=== PATIENT | male | born 1930 | race Caucasian/White ===

== ENCOUNTER 2018-10-11 07:22 | Inpatient (IN) ==
[2018-10-11] MEDS ORDERED: Sod Chloride 0.9% Inj 1,000 ML IV.CONT SCH (08:00)
[2018-10-11] MEDS ORDERED: Chlorhexidine Gluconate 2% 1 Pack (2 Cloths) TOPICAL SCH ×2 (08:00→08:14)
[2018-10-11] MEDS ORDERED: Aspirin 325 MG Tablet PO SCH (08:00)
[2018-10-11] MEDS ORDERED: Mupirocin 2% Nasal Oint Topical Syringe EACH NARE SCH (08:00)
[2018-10-11] MEDS ORDERED: Metoprolol Tartrate 25 MG Tablet PO SCH (08:14)
[2018-10-11] MEDS ORDERED: Sodium Chlor 0.9% Inj 500 ML IV.SIG SCH (09:00)
[2018-10-11 09:28] LABS: INR 1.3 Ratio; Prothrombin Time 12.7 sec (9.8-11.6)
--- NOTE | 2018-10-11 09:44 | P.HPCA ---
History of Present Illness Service: Cardiology Primary Care Physician: Yvette Craft Chief Complaint: Severe aortic valve stenosis History of Present Illness: This is an 86-year-old male with history of atrial fibrillation, coronary disease, known carotid arterial occlusion, chronic renal insufficiency, hyperlipidemia, hypertension, myeloproliferative disease, peripheral vascular disease who presented to the outpatient setting with progressive shortness of breath. Transthoracic echocardiogram revealed moderate to severely reduced left ventricular systolic function with an ejection fraction of 35% and severe aortic valve stenosis. Patient was then referred for consideration of aortic valve replacement. Patient was evaluated by 2 cardiovascular surgeons and felt to be intermediate to high surgical risk for aortic valve replacement and was referred for consideration of transcatheter aortic valve replacement. Patient is now scheduled here electively for his procedure. - Diagnosis (1) Severe aortic valve stenosis (2) Chronic combined systolic and diastolic congestive heart failure Inpatient Certification: I certify that the inpatient services were ordered in accordance with Medicare regulations governing the order. This includes certification that hospital inpatient services are reasonable and necessary and in the case of services not specified as inpatient-only under 42 CFR 419.22(n), that they are appropriately provided as inpatient services in accordance to with the 2-midnight benchmark under 43 CFR 412.3(e) Estimated Total Length of Stay (Days): 3 Plans for Post Hospital Care: Home Review of Systems All other systems reviewed negative except as stated in HPI [facility] - History History Provided By: Patient - Medical History Medical History: Medical History (Last Updated 08/24/18 @ 11:45 by Ana Quintanilla) Afib Anemia Aortic stenosis CAD (coronary artery disease) CHF (congestive heart failure) CKD (chronic kidney disease), stage III Dyspnea Glaucoma Hypothyroidism Left bundle branch block PAD (peripheral artery disease) PVD (peripheral vascular disease) Pacemaker Second degree AV block Skin cancer Ventricular tachycardia Vocal cord cancer - Tobacco History Smoking Status: Former smoker - Alcohol History How Often Do You Have a Drink Containing Alcohol: Never Medications and Allergies Active Medications: Active Medications Aspirin (Aspirin) 325 mg PO PLASTIC EYE TECHNICIAN [facility] Stop: 10/14/18 07:47 Last Admin: 10/11/18 08:09 Dose: 325 mg Chlorhexidine Gluconate (Chlorhexidine 2% Cloth) 3 pack TOPICAL PLASTIC EYE TECHNICIAN [facility] Stop: 10/14/18 07:47 Last Admin: 10/11/18 08:10 Dose: 3 pack Chlorhexidine Gluconate (Chlorhexidine 2% Cloth) 3 pack TOPICAL PLASTIC EYE TECHNICIAN [facility] Stop: 10/11/18 23:59 Sodium Chloride (Ns Inj) 1,000 mls @ 125 mls/hr IV.CONT .Q8H [facility] Cefazolin Sodium/Dextrose (Ancef 2 Gm Premix Inj) 2 gm in 50 mls @ 100 mls/hr IV.SIG PLASTIC EYE TECHNICIAN [facility] Stop: 10/14/18 07:59 Lactated Ringer's (Lr 1000 Ml Inj) 1,000 mls @ 30 mls/hr IV.SIG .Q24H [facility] Stop: 10/12/18 08:14 Sodium Chloride (Ns Inj) 500 mls @ 30 mls/hr IV.SIG .[id number] [facility] Stop: 10/12/18 01:39 Metoprolol Tartrate (Lopressor) 25 mg PO PLASTIC EYE TECHNICIAN [facility] Stop: 10/11/18 23:59 Mupirocin (Bactroban 2% Nasal Oint) 1 applicatio EACH NARE PLASTIC EYE TECHNICIAN [facility] Stop: 10/14/18 07:47 Povidone Iodine (Betadine 5% Antisepsis Kit) 1 applicatio TOPICAL PLASTIC EYE TECHNICIAN [facility] Stop: 10/14/18 07:47 Last Admin: 10/11/18 08:09 Dose: 1 applicatio Povidone Iodine (Betadine 5% Antisepsis Kit) 1 applicatio EACH NARE PLASTIC EYE TECHNICIAN [facility] Stop: 10/11/18 23:59 Allergies Allergy/AdvReac Type Severity Reaction Status Date / Time No Known Allergies Allergy Verified 10/11/18 08:16 Home Medications Medication Instructions Recorded Confirmed Type carvedilol 3.125 mg PO BID 08/24/18 10/11/18 History ferrous sulfate [iron] 325 mg PO DAILY 08/24/18 10/11/18 History furosemide 20 mg PO DAILY 08/24/18 10/11/18 History hydroxyurea 500 mg PO DAILY 08/24/18 10/11/18 History levothyroxine 75 mcg PO DAILY 08/24/18 10/11/18 History simvastatin 40 mg PO QPM 08/24/18 10/11/18 History warfarin See Label Instructions .ROUTE 08/24/18 10/11/18 History .COMPLEX warfarin See Label Instructions .ROUTE 08/24/18 10/11/18 History .COMPLEX Exam Vital signs: Vital Signs 10/11/18 08:13 Temperature 97.4 F L Pulse Rate 56 L Respiratory Rate 16 Blood Pressure 109/70 Pulse Oximetry 100 Intake & Output 10/10/18 10/11/18 10/11/18 18:59 06:59 18:59 Weight 84.4 kg Other: Weight On Admission 84.4 kg - Constitutional no acute distress - Routine HEENT Exam Eye: Present: EOMI, PERRL ENT: Present: mucous membranes moist - Routine Neck Exam Absent: JVD - Routine Respiratory Exam Present: CTA bilaterally - Routine Cardiovascular Exam Present: RRR, murmur - Routine Abdominal Exam Present: soft, normoactive bowel sounds - Routine Extremities Exam Present: pulses intact. Absent: edema - Routine Skin Exam Absent: erythema - Routine Neurological Exam Present: alert, oriented X3, CN II-XII intact. Absent: sensory deficit, motor deficit Results Coagulation 10/11/18 Range/Units 08:31 PT 12.7 H (9.8-11.6) sec Intake and Output 10/10/18 10/11/18 10/11/18 22:59 06:59 14:59 Other: Weight 84.4 kg Weight On Admission 84.4 kg Patient Weight 10/12/18 06:59 Weight 84.4 kg EKG interpretations - Dysrhythmias Supraventricular dysrhythmia: atrial fibrillation - SD, pacemaker, normal Pacemaker: ventricular pacing w/capture (except when refractory) Caprini VTE Risk Assessment Caprini VTE Risk Assessment: Moderate/High Risk (score >= 2) Caprini Risk Assessment Model: Point Value = 1 Point Value = 2 Point Value = 3 Point Value = 5 Age 41-60 Minor surgery BMI > 25 kg/m2 Swollen legs Varicose veins or History of unexplained or recurrent spontaneous Oral contraceptives or hormone replacement Sepsis (< 1 month) Serious lung disease, including pneumonia (< 1 month) Abnormal pulmonary function Acute myocardial infarction Congestive heart failure (< 1 month) History of inflammatory bowel disease Medical patient at bed rest Age 61-74 Arthroscopic surgery Major open surgery (> 45 min) Laparoscopic surgery (> 45 min) Malignancy Confined to bed (> 72 hours) Immobilizing plaster cast Central venous access Age >= 75 History of VTE Family history of VTE Factor V Leiden Prothrombin [id number] Lupus anticoagulant Anticardiolipin antibodies Elevated serum homocysteine Heparin-induced thrombocytopenia Other congenital or acquired thrombophilia Stroke (< 1 month) Elective arthroplasty Hip, pelvis, or leg fracture Acute spinal cord injury (< 1 month) Prophylaxis Regimen: Total Risk Factor Score Risk Level Prophylaxis Regimen 0-1 Low Early ambulation 2 Moderate Order ONE of the following: *Sequential Compression Device (SCD) *Heparin 5000 units SQ BID 3-4 Higher Order ONE of the following medications: *Heparin 5000 units SQ TID *Enoxaparin/Lovenox 40 mg SQ daily (WT < 150 kg, CrCl > 30 mL/min) *Enoxaparin/Lovenox 30 mg SQ daily (WT < 150 kg, CrCl > 10-29 mL/min) *Enoxaparin/Lovenox 30 mg SQ BID (WT < 150 kg, CrCl > 30 mL/min) AND/OR *Sequential Compression Device (SCD) 5 or more Highest Order ONE of the following medications: *Heparin 5000 units SQ TID (Preferred with Epidurals) *Enoxaparin/Lovenox 40 mg SQ daily (WT < 150 kg, CrCl > 30 mL/min) *Enoxaparin/Lovenox 30 mg SQ daily (WT < 150 kg, CrCl > 10-29 mL/min) *Enoxaparin/Lovenox 30 mg SQ BID (WT < 150 kg, CrCl > 30 mL/min) AND *Sequential Compression Device (SCD) Assessment and Plan - Assessment (1) Severe aortic valve stenosis Code(s): I35.0 - Nonrheumatic aortic (valve) stenosis Status: Acute (2) Chronic combined systolic and diastolic congestive heart failure Code(s): I50.42 - Chronic combined systolic (congestive) and diastolic ( congestive) heart failure Status: Acute - Plan This is an 88-year-old male with multiple comorbidities which includes cardiomyopathy and severe aortic valve stenosis. Patient was evaluated by cardiothoracic surgery and felt to be intermediate to high risk for surgical aortic valve replacement and referred for consideration of a transcatheter aortic valve replacement approach. Preoperative evaluation: STS score 7.3% [place] [employer] functional class III symptoms Body mass index 26.1 2/4 frailty score Electrocardiogram from August 24, 2018 shows atrial fibrillation with intermittent premature ventricular complexes and ventricular paced beats Pulmonary function testing from August 24, 2018 shows an FEV1 of 1.62 which equals 56% consistent with mild restrictive lung disease Echocardiogram from August 24, 2018 shows a peak jet velocity of 2.83 m/s with a mean gradient of 16.7 mmHg and a calculated aortic valve area of 0.6 cm. Left ventricular ejection fraction calculated 32%, mild aortic insufficiency, mild to moderate mitral regurgitation, moderate tricuspid regurgitation, dimensionless index 0.18 consistent with severe aortic valve stenosis along with stroke volume index of 17. Cardiac catheterization August 24, 2018 shows branch vessel coronary artery disease involving the first diagonal and obtuse marginal branches both managed medically Computed tomographic analysis from September 11, 2018 shows a short annulus diameter 25.4 mm, long annulus diameter 30.5 mm, perimeter of 87.9 mm, sinus of Valsalva diameter 37.2 mm, sinotubular junction 30.5 mm, left coronary height 16.6 mm, right coronary height 16.6 mm, implant angle left anterior oblique 13 and cranial 18 degrees. Minimal luminal diameter in the right lower extremity 6.6 mm and in the left is less than 6 mm. There is heavy calcification in the common iliac artery on the right and subtotal occlusion in the left common iliac artery. Risks, benefits, and alternatives were discussed with the patient. Patient understood and consented to the procedure. We will plan for implantation of a 34 mm Medtronic evolute R bioprosthetic transcatheter aortic valve via a right common femoral approach. Alternate access will also be considered in the case of difficult transition to the iliac system. Case discussed in detail with surgical colleagues.
[2018-10-11] MEDS: ceFAZolin 2 GM Premix Inj 2 GM/50 ML PIGGYBACK IV.SIG SCH (11:00)
[2018-10-11] MEDS ORDERED: Iohexol Inj 350 MG/ML 100 ML Bottle (for RAD Diag) IVCONTRAST ONE (12:10)
[2018-10-11] MEDS ORDERED: Morphine Sulfate Inj 2 MG/ML Vial IV.PUSH PRN (12:24)
[2018-10-11] MEDS ORDERED: hydrALAZINE HCl Inj 20 MG/ML Vial IV.PUSH PRN (12:24)
--- NOTE | 2018-10-11 12:28 | P.OP ---
Date of procedure: 10/11/18 Anesthesia: GETA Surgeon: Melissa Milligan MD Operation and Findings: PREOPERATIVE DIAGNOSIS: 1. Severe Symptomatic Aortic stenosis. 2. CHF 3. Mild aortic Insufficiency 4. Severe Mitral Insufficiency 5. Atrial Fibrillation POSTOPERATIVE DIAGNOSIS: Same OPERATION PERFORMED: 1. Transcatheter Aortic Valve Replacement (TAVR) with a Medtronic 34 mm Evolut R Tissue Valve. 2. Aortogram. 3. Percutaneous left femoral Vein Access and Bilateral Common Femoral Artery Access 4. Perclose (x2) closure of right Common Femoral artery. 5. Vascade closure of left Common Femoral Artery and Vein. 6. Fluoroscopy SURGEON: Melissa Milligan MD CO-SURGEON: Marshall Polanco MD SOFTBALL PLAYER SURGEON: None CHEMICAL LAB SUPERVISOR: FLORIDALMA Cramer MD ANESTHESIA: GETA PROCEDURE: The risks, benefits, complications, treatment options, and expected outcomes were discussed with the patient. The possibilities of reaction to medication, pulmonary aspiration, perforation of viscus, bleeding, recurrent infection, the need for additional procedures, failure to diagnose a condition, and creating a complication requiring transfusion or operation were discussed with the patient. The patient concurred with the proposed plan, giving informed consent. The site of surgery properly noted/marked. The patient was taken to the hybrid operating room and the procedure verified as Transcatheter Aortic Valve Replacement. A Time Out was held and the above information confirmed. Standard monitoring lines and Villatoro catheter were placed. General anesthesia was induced. The patient was prepped and draped in a sterile fashion. Initially, the left femoral arterial and venous access was acquired using a Seldinger percutaneous technique. The details of this procedure were dictated under separate note by cardiology. Once a pigtail was positioned in the aortic annulus and a temporary transvenous pacemaker wire was placed in the right ventricular apex and tested, the right femoral artery was accessed using a needle followed by a guidewire under fluoroscopic guidance. The patient was heparinized and two Perclose devices deployed at a 45 degree angle for later closure. Serial dilators were used to dilate the right femoral artery to 16 [place] caliber. The Medtronic sheath was then inserted into the external iliac artery up to the distal abdominal aorta. Arch aortography was performed to define the implant view. A 34 mm Medtronic Evolut R transcatheter aortic valve was then positioned in the annulus and deployed with the patient being rapidly paced. Following deployment, the valve apparatus was withdrawn and arch aortography and CHANTELLE were performed to assess the valve. The valve had trace perivalvular leak. Gradients were then measured and the sheath was removed with securing the Perclose sutures for hemostasis. Protamine was administered. The left arterial and Venous access sites were closed using the Vascade device. Sterile dressings were placed. At the end of the operation, all sponge, instruments, and needle counts were correct. The patient was transferred to the CVICU in stable condition. Findings: Trace PVL Implants: 34 Evolut R Medtronic Valve Complications: None Disposition: CVICU in stable condition
[2018-10-11] MEDS ORDERED: fentaNYL Citrate Inj 100 MCG/2 ML Ampul ONE (12:52)
--- NOTE | 2018-10-11 12:56 | P.CONCC ---
History of Present Illness Service: Critical care medicine Consult date: 10/11/18 Requesting Physician: Marshall Polanco Reason for Consult: perioperative management of medical comorbidities Primary Care Provider: Yvette Craft Chief Complaint: Severe aortic valve stenosis History of Present Illness: This is an 88-year-old male with a history of severe aortic stenosis who presents for elective transcatheter aortic valve replacement. He underwent uncomplicated procedure under general anesthesia via groin access. He arrives to the CVICU in stable and exudative condition. Due to his arousal from anesthesia complete review of systems is unobtainable. Limited review of systems is negative for chest pain, sore throat, shortness of breath, headache, nausea, vomiting. Review of Systems unobtainable due to mental status (Limited by arousing from anesthesia) PMF - History History Provided By: Patient, Medical Record - Medical History Medical History: Medical History (Last Reviewed 10/11/18 @ 12:52 by Delroy Lennon MD) Afib Anemia Aortic stenosis CAD (coronary artery disease) CHF (congestive heart failure) CKD (chronic kidney disease), stage III Dyspnea Glaucoma Hypothyroidism Left bundle branch block PAD (peripheral artery disease) PVD (peripheral vascular disease) Pacemaker Second degree AV block Skin cancer Ventricular tachycardia Vocal cord cancer - Family History Family History: Family History (Last Updated 10/11/18 @ 12:52 by Delroy Lennon MD) Other Family history non-contributory - Social History I have reviewed the patient's Social History: Yes - Tobacco History Smoking Status: Former smoker - Alcohol History How Often Do You Have a Drink Containing Alcohol: Never Medications and Allergies Active Medications: Active Medications Aspirin (Aspirin) 325 mg PO VOICE INSTRUCTOR [facility] Stop: 10/14/18 07:47 Last Admin: 10/11/18 08:09 Dose: 325 mg Aspirin (Aspirin Chew) 81 mg PO DAILY [facility] Atorvastatin Calcium (Lipitor) 20 mg PO ONCE ONE Stop: 10/11/18 14:01 Carvedilol (Coreg) 3.125 mg PO BID [facility] Chlorhexidine Gluconate (Chlorhexidine 2% Cloth) 3 pack TOPICAL VOICE INSTRUCTOR [facility] Stop: 10/14/18 07:47 Last Admin: 10/11/18 08:10 Dose: 3 pack Chlorhexidine Gluconate (Chlorhexidine 2% Cloth) 3 pack TOPICAL VOICE INSTRUCTOR [facility] Stop: 10/11/18 23:59 Clonidine HCl (Catapres) 0.2 mg PO Q6H PRN PRN Reason: SBP > 160 mmHg Clopidogrel Bisulfate (Plavix) 75 mg PO DAILY [facility] Ferrous Sulfate (Ferosul) 325 mg PO DAILY [facility] Furosemide (Lasix Inj) 20 mg IV.PUSH ONCE ONE Stop: 10/11/18 14:01 Hydralazine HCl (Apresoline Inj) 10 mg IV.PUSH Q30M PRN PRN Reason: SBP > 160 mmHg Sodium Chloride (Ns Inj) 1,000 mls @ 125 mls/hr IV.CONT .Q8H [facility] Cefazolin Sodium/Dextrose (Ancef 2 Gm Premix Inj) 2 gm in 50 mls @ 100 mls/hr IV.SIG VOICE INSTRUCTOR [facility] Stop: 10/14/18 07:59 Last Infusion: 10/11/18 11:15 Dose: Infused Lactated Ringer's (Lr 1000 Ml Inj) 1,000 mls @ 30 mls/hr IV.SIG .Q24H [facility] Stop: 10/12/18 08:14 Sodium Chloride (Ns Inj) 500 mls @ 30 mls/hr IV.SIG .[id number] [facility] Stop: 10/12/18 01:39 Metoprolol Tartrate (Lopressor) 25 mg PO VOICE INSTRUCTOR [facility] Stop: 10/11/18 23:59 Morphine Sulfate (Morphine Inj) 2 mg IV.PUSH Q30M PRN PRN Reason: BREAKTHROUGH PAIN Mupirocin (Bactroban 2% Nasal Oint) 1 applicatio EACH NARE VOICE INSTRUCTOR [facility] Stop: 10/14/18 07:47 Ondansetron HCl (Zofran Inj) 4 mg IV.PUSH ONCE PRN PRN Reason: NAUSEA OR VOMITING Oxycodone/Acetaminophen (Percocet 5/325 Mg) 1 tab PO Q6H PRN PRN Reason: PAIN SCALE 3 TO 5 Povidone Iodine (Betadine 5% Antisepsis Kit) 1 applicatio TOPICAL VOICE INSTRUCTOR [facility] Stop: 10/14/18 07:47 Last Admin: 10/11/18 08:09 Dose: 1 applicatio Povidone Iodine (Betadine 5% Antisepsis Kit) 1 applicatio EACH NARE VOICE INSTRUCTOR [facility] Stop: 10/11/18 23:59 Allergies Allergy/AdvReac Type Severity Reaction Status Date / Time No Known Allergies Allergy Verified 10/11/18 08:16 Home Medications Medication Instructions Recorded Confirmed Type carvedilol 3.125 mg PO BID 08/24/18 10/11/18 History ferrous sulfate [iron] 325 mg PO DAILY 08/24/18 10/11/18 History furosemide 20 mg PO DAILY 08/24/18 10/11/18 History hydroxyurea 500 mg PO DAILY 08/24/18 10/11/18 History levothyroxine 75 mcg PO DAILY 08/24/18 10/11/18 History simvastatin 40 mg PO QPM 08/24/18 10/11/18 History warfarin See Label Instructions .ROUTE 08/24/18 10/11/18 History .COMPLEX warfarin See Label Instructions .ROUTE 08/24/18 10/11/18 History .COMPLEX Physical Exam Vital signs: Vital Signs 10/11/18 08:13 Temperature 36.3 C L Pulse Rate 56 L Respiratory Rate 16 Blood Pressure 109/70 Pulse Oximetry 100 Intake & Output 10/10/18 10/11/18 10/11/18 18:59 06:59 18:59 Intake Total 1350 / 1350 Output Total 200 / 200 Balance 1150 / 1150 Weight 84.4 kg Intake: IV 50 / 50 Ancef 2 GM Premix Inj 2 gm In 50 / 50 50 ml @ 100 mls/hr IV.SIG VOICE INSTRUCTOR [facility] Rx#:[id number] Anesthesia Amount 1300 / 1300 Output: Estimated Blood Loss 200 / 200 Other: Weight On Admission 84.4 kg Narrative: GENERAL: Frail elderly male, lying in bed, arousing from anesthesia HEENT: Normocephalic. Atraumatic. Pupils equal, round, reactive, conjugate. Mucous membranes are moist NECK: Trachea is midline. There is no JVD. right IJ introducer sheath with transvenous pacer in place, site is clean and dry, dressing intact. CHEST: unlabored. equal chest rise. nc o2. CARDIOVASCULAR: normal rate, regular rhythm. Transvenous pacer is set VVI at a backup rate of 50. not currently paced. ABDOMEN: Soft, nontender, nondistended. No guarding. MUSCULOSKELETAL: Pulses 2+. No peripheral edema. bilateral groin sites are clean and dry, no evidence of hematoma, dressing intact. distal LE pulses are Dopplerable. NEUROLOGICAL: RASS -2. Arousing from anesthesia. follows commands. moves all extremities. no focal deficits. Assessment and Plan - Assessment and Plan Plan: Assessment: 88-year-old male postop day 0 status post transcatheter aortic valve placement. Admit to ICU for close monitoring. S/p TAVR today via groin access - anticoagulation per senior instructor - mivf - close uop monitoring - frequent neurovascular checks - frequent groin checks - OOB after flat time Hypertension - goal sbp < 180 - add back antihypertensives as needed Congestive Heart Failure secondary to valvulopathy - mivf today - may need diuresis beginning after POD 1 Hyperlipidemia - restart home statin Chronic Kidney Disease, Stage III - mivf - watch cr - watch uop closely Hypothyroidism - restart home synthroid PAD PVD - close groin and neurovascular checks advance diet after flat time SCDs AM CBC, BMP Critical care medicine will continue to follow while patient remains in the CVICU.
--- NOTE | 2018-10-11 13:20 | P.OP ---
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 Fluoroscopy with interpretation 2. Left heart catheterization 3. Ascending aortography 4. Temporary transvenous pacemaker placement 5. Transesophageal echocardiogram 7. Transcatheter aortic valve replacement with Medtronic Evolut R 34 mm bioprosthetic valve Methods: Risks, benefits, and alternatives were discussed with the patient. Patient understood and consented to the procedure. Patient was brought into the operating room and placed on the operating table. Bilateral groins and chest were prepped and draped. Under fluoroscopic guidance the left common femoral artery was cannulated and a 5 Luxembourger 11 cm sheath was placed without difficulty. Left femoral vein was accessed and a 5 Luxembourger 11 cm sheath was placed without difficulty. Right common femoral artery was cannulated under fluoroscopic and angiographic guidance through using a micropuncture sheath. Angiography confirmed appropriate placement. An 8 [place]bourger sheath was placed without difficulty. 2 Perclose devices were deployed in a pre-close manner. The 14 sheath was then advanced up over the wire through the iliac system without difficulty into the descending abdominal aorta. Temporary transvenous pacemaker placement: A 5 [place]ger balloon tipped temporary transvenous pacemaker was advanced under fluoroscopic guidance to the right internal jugular sheath to the right ventricular apex. Appropriate pacing and capture was confirmed and utilized during the procedure for rapid ventricular pacing. Transesophageal echocardiogram: Please see detailed separate report Ascending aortography: Ascending aortography was performed using an 5 Luxembourger angled pigtail catheter advanced to the left common femoral arterial sheath to the level of the descending aorta and its the right coronary cusp. Ascending aortography was performed which showed 3 leaflets and parallax view. The ascending aorta was not significantly dilated. Left heart catheterization: A 5 Luxembourger AL-1 catheter was advanced through the right common femoral sheath to the level of the descending aorta a 0.035 inch Amplatz straight tip Super Stiff wire was then advanced across the aortic valve with some difficulty. The AL-1 catheter was advanced into the left ventricle. A 260 cm 0.035 inch standard J-wire was then advanced to the left ventricular apex and the AL-1 catheter removed. A 5 [place]bourger angled pigtail catheter was then advanced over the J-wire into the left ventricular apex and the J-wire removed. A 0.035 inch 260 cm Medtronic Confida wire was then advanced to the left ventricular apex through the pigtail catheter, and the pigtail catheter removed. Transcatheter aortic valve replacement: A 34 mm Medtronic Evolut R valve was advanced through the right common femoral sheath to the level of the descending aorta. The device was then advanced up and over the arch to the level of the ascending aorta and across the aortic valve. Appropriate positioning was confirmed with a sending aortography and fluoroscopy. Under ventricular pacing at rate of 120 bpm, the transcatheter aortic valve was slowly deployed. Immediate post deployment transesophageal echocardiogram revealed appropriate positioning. There was no perivalvular leak or pericardial effusion. Patient tolerated the procedure with good hemodynamic stability. The delivery sheath was then removed. The right common femoral arterial sheath was removed and 2 Perclose devices deployed with good hemostasis. The left common femoral artery and venous sheaths were also removed and 2 Vascade closure devices were deployed with good hemostasis. Post valve deployment intraoperative transesophageal echocardiogram findings: 1. Post aortic valve area was 1.57 cm 2. Post implant mean aortic valve gradient was 2 mmHg 3. Post implant peak velocity was 1.15 m/seconds 4. Aortic valve insufficiency showed trivial perivalvular leak Conclusions: 1. Severe kaw aortic valve stenosis 2. Successful transcatheter aortic valve replacement with a 34 mm Medtronic Evolut R bioprosthetic valve Plan: We will monitor the patient closely for any immediate postprocedural complications. We will consult electrophysiology for evaluation of postprocedure heart rhythm. We will obtain a limited transthoracic echocardiogram. We will initiate antiplatelet therapy with aspirin and Plavix. Patient be transferred to the cardiovascular intensive care unit for further monitoring
--- NOTE | 2018-10-11 16:52 | ECG ---
Date Performed: 10/11/2018 Time Performed: 08:11:02 PTAGE: 88 years EKG: Paced rhythm PVCs Abnormal ECG PREVIOUS TRACING : 08/24/2018 11.14 Since the previous tracing, no significant change noted DOCTOR: Sulaiman Steward Interpretating Date/Time 10/11/2018 16:52:18
[2018-10-12] MEDS ORDERED: Levothyroxine 75 MCG Tablet PO SCH (06:00)
[2018-10-12 06:12] LABS: Hematocrit 28.1 % (39.0-51.0); Hemoglobin 9.5 gm/dL (13.0-17.0); Mean Corpuscular Hemoglobin 44.6 pg (27.0-34.0); Mean Corpuscular Volume 131.5 fL (80.0-100.0); Mean Platelet Volume 7.9 fL (7.0-11.0); Platelet Count 337 th/mm3 (150-450); Red Blood Count 2.13 mil/mm3 (4.50-5.90); Red Cell Distribution Width 14.1 % (11.6-17.2); White Blood Count 7.3 th/mm3 (4.0-11.0)
[2018-10-12 06:36] LABS: Alanine Aminotransferase 10 U/L (12-78); Albumin 3.1 g/dL (3.4-5.0); Anion Gap 5 meq/L (5-15); Aspartate Aminotransferase 21 U/L (15-37); Blood Urea Nitrogen 35 mg/dL (7-18); Calcium 7.9 mg/dL (8.5-10.1); Carbon Dioxide 30.4 meq/L (21.0-32.0); Chloride 106 meq/L (98-107); Glomerular Filtration Rate 39 mL/min (>89); Glucose,Random 117 mg/dL (74-106); Potassium 4.4 meq/L (3.5-5.1); Sodium 141 meq/L (136-145)
[2018-10-12 06:38] LABS: Alkaline Phosphatase 48 U/L (45-117); Total Protein 6.7 g/dL (6.4-8.2)
--- NOTE | 2018-10-12 06:54 | P.PNCC ---
Subjective Subjective Remarks/Hospital Course: Hospital Course: This is an 88-year-old male with a history of severe aortic stenosis who presents for elective transcatheter aortic valve replacement. He underwent uncomplicated procedure under general anesthesia via groin access. He arrives to the CVICU in stable and exudative condition. Due to his arousal from anesthesia complete review of systems is unobtainable. Limited review of systems is negative for chest pain, sore throat, shortness of breath, headache, nausea, vomiting. Subjective: 10/12: doing well. did not sleep well overnight. complained of sore throat which is resolving. groin discomfort is present but tolerable per patient. Objective Vital Signs / I&O: Vital Signs 10/11/18 08:13 10/11/18 13:00 10/11/18 13:06 Temperature 36.3 C L 36.4 C Pulse Rate 56 L 79 87 Respiratory Rate 16 14 Blood Pressure 109/70 140/68 Pulse Oximetry 100 10/11/18 13:17 10/11/18 15:00 10/11/18 20:00 Temperature 36.6 C 36.8 C Pulse Rate 73 74 Respiratory Rate 16 20 Blood Pressure 164/60 H 137/54 L Pulse Oximetry 92 L 97 97 10/11/18 20:12 10/12/18 00:00 Temperature Pulse Rate 72 Respiratory Rate 16 Blood Pressure 118/54 L Pulse Oximetry 99 98 Intake & Output 10/11/18 10/11/18 10/12/18 06:59 18:59 06:59 Intake Total 1350 / 1350 Output Total 625 / 625 Balance 725 / 725 Weight 84.4 kg Intake: IV 50 / 50 Ancef 2 GM Premix Inj 2 gm In 50 / 50 50 ml @ 100 mls/hr 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 HEENT: Normocephalic. Atraumatic. Pupils equal, round, reactive, conjugate. Mucous membranes are moist NECK: Trachea is midline. There is no JVD. right IJ introducer sheath in place , site is clean and dry, dressing intact. CHEST: unlabored. equal chest rise. nc o2. CARDIOVASCULAR: normal rate, regular rhythm. intermittently paced via permanent pacer. ABDOMEN: Soft, nontender, nondistended. No guarding. MUSCULOSKELETAL: Pulses 2+. No peripheral edema. bilateral groin sites are clean and dry, no evidence of hematoma, dressing intact. distal LE pulses are Dopplerable. NEUROLOGICAL: RASS 0. awake and alert. follows commands. moves all extremities. no focal deficits. Assessment and Plan - Assessment and Plan Plan: Assessment: 88-year-old male postop day 1 status post transcatheter aortic valve placement. stable to transfer out of ICU. from my standpoint, could go home today if he ambulates and tolerates PO. S/p TAVR 10/11 via groin access - anticoagulation per olive grower - d/c mivf. - close uop monitoring - frequent neurovascular checks - frequent groin checks - OOB Hypertension - goal sbp < 180 - add back antihypertensives as needed Congestive Heart Failure secondary to valvulopathy - may need gentle diuresis. Hyperlipidemia - home statin Chronic Kidney Disease, Stage III - watch cr - watch uop closely - Cr stable on today check. Hypothyroidism - home synthroid PAD PVD - close groin and neurovascular checks advance diet as tolerated SCDs AM CBC, BMP Critical care medicine will sign off.
--- NOTE | 2018-10-12 08:35 | P.DS ---
Date of admission: 10/11/18 07:22 Primary care physician: Yvette Craft Brief History from admission: This is an 86-year-old male with history of atrial fibrillation, coronary disease, known carotid arterial occlusion, chronic renal insufficiency, hyperlipidemia, hypertension, myeloproliferative disease, peripheral vascular disease who presented to the outpatient setting with progressive shortness of breath. Transthoracic echocardiogram revealed moderate to severely reduced left ventricular systolic function with an ejection fraction of 35% and severe aortic valve stenosis. Patient was then referred for consideration of aortic valve replacement. Patient was evaluated by 2 cardiovascular surgeons and felt to be intermediate to high surgical risk for aortic valve replacement and was referred for consideration of transcatheter aortic valve replacement. Patient is now scheduled here electively for his procedure. Patient update on day of discharge: Up in the chair eating breakfast currently. Overall feels well. Denies any shortness of breath. Has noticed some intermittent chest tightness since yesterday. Some tenderness to the right groin, but tolerable. For limited echo today. Telemetry paced rhythm overnight. DS: Medications - Discharge Medications Prescriptions: clopidogrel [Plavix] 75 mg PO DAILY #30 tab DS: Summary Hospital Course: 88-year-old male admitted for elective TAVR on 10/11/18. The patient underwent unremarkable ilda-operative course. Plan is for likely discharge home in stable condition later today as long as patient continues to do well. Continue Plavix for antiplatelet in addition to patient's warfarin. - Time Spent with Patient Total time spent providing and/or coordinating discharge services: Greater than 30 minutes Exam Vital signs: Vital Signs 10/11/18 13:00 10/11/18 13:06 10/11/18 13:17 Temperature 97.6 F Pulse Rate 79 87 Respiratory Rate 14 Blood Pressure 140/68 Pulse Oximetry 92 L 10/11/18 15:00 10/11/18 20:00 10/11/18 20:12 Temperature 97.8 F 98.2 F Pulse Rate 73 74 Respiratory Rate 16 20 Blood Pressure 164/60 H 137/54 L Pulse Oximetry 97 97 99 10/12/18 00:00 10/12/18 04:00 10/12/18 07:00 Temperature 97.6 F Pulse Rate 72 68 68 Respiratory Rate 16 16 18 Blood Pressure 118/54 L 107/68 110/54 L Pulse Oximetry 98 99 99 10/12/18 07:39 Temperature Pulse Rate Respiratory Rate Blood Pressure Pulse Oximetry 93 L Intake & Output 10/11/18 10/12/18 10/12/18 18:59 06:59 18:59 Intake Total 1350 / 1350 480 / 480 Output Total 625 / 625 450 / 450 Balance 725 / 725 30 / 30 Weight 186 lb 1.122 oz Intake: IV 50 / 50 Ancef 2 GM Premix Inj 2 gm In 50 / 50 50 ml @ 100 mls/hr 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 In no acute distress. NECK: No carotid bruits. No JVD. CARDIOVASCULAR: Regular rate and rhythm. [place] valve sounds appreciated. RESPIRATORY: No accessory muscle use. Clear to auscultation. Breath sounds equal bilaterally. MUSCULOSKELETAL: No clubbing or cyanosis. No edema. Minimal ecchymosis and no swelling of bilateral groin access sites with femoral intact pulses, mild tenderness to palpation on the right. NEUROLOGICAL: Awake and alert. Normal speech. Results Procedures completed during hospitalization: TAVR 10/11/18 Labs on day of discharge: Labs from last 24 hours 10/12/18 10/12/18 10/11/18 05:40 05:40 08:31 WBC 7.3 RBC 2.13 L Hgb 9.5 L Hct 28.1 L MCV 131.5 H MCH 44.6 H MCHC 34.0 RDW 14.1 Plt Count 337 MPV 7.9 PT 12.7 H INR 1.3 Sodium 141 Potassium 4.4 Chloride 106 Carbon Dioxide 30.4 Anion Gap 5 BUN 35 H Creatinine 1.66 H Estimated GFR 39 L Random Glucose 117 H Calcium 7.9 L Total Bilirubin 0.6 AST 21 ALT 10 L Alkaline Phosphatase 48 Total Protein 6.7 Albumin 3.1 L MTS Gel Crossmatch Bld Prod Order Comment 10/11/18 07:38 WBC RBC Hgb Hct MCV MCH MCHC RDW Plt Count MPV PT INR Sodium Potassium Chloride Carbon Dioxide Anion Gap BUN Creatinine Estimated GFR Random Glucose Calcium Total Bilirubin AST ALT Alkaline Phosphatase Total Protein Albumin MTS Gel Crossmatch See Detail Bld Prod Order Comment Discharge Plan - Discharge Disposition Patient Disposition: 01 Discharge Home - Discharge Condition Condition: Stable - Discharge Order Discharge Orders: Discharge Order (Routine); Ordered 10/12/18 Ordered By: Daniel Burton - Discharge Details Anticipated Discharge Date: 10/12/18 - Physicians Team Primary Care Provider: Yvette Craft Attending Provider: Marshall Polanco Other Providers: Delroy Lennon MD ; Arcenio Rg - Rxs /Orders / Referrals /Forms Prescriptions: New clopidogrel [Plavix] 75 mg Tablet 75 mg PO DAILY Qty: 30 RF: 6 Continue carvedilol 3.125 mg Tablet 3.125 mg PO BID ferrous sulfate [iron] 325 mg (65 mg iron) Tablet 325 mg PO DAILY furosemide 20 mg Tablet 20 mg PO DAILY hydroxyurea 500 mg Capsule 500 mg PO DAILY levothyroxine 75 mcg Tablet 75 mcg PO DAILY simvastatin 40 mg Tablet 40 mg PO QPM warfarin 7.5 mg Tablet See Label Instructions .ROUTE .COMPLEX warfarin 5 mg Tablet See Label Instructions .ROUTE .COMPLEX Referrals: Yvette Craft MD [Primary Care Provider] - See Instructions - Discharge Instructions Patient Printed Instructions: Transcatheter Aortic Valve Replacement (DC)
--- NOTE | 2018-10-12 08:52 | ECHRPT ---
Indication: CONCLUSIONS Trileaflet aortic valve. Severe aortic valve stenosis. Mild aortic insufficiency. Status post perioperative trans-catheter to valve replacement. No residual stenosis. No perivalvul ar leak. The left ventricular systolic function is severely reduced with an estimated ejection fraction in th e range of 25-30%. BP: / HR: Rhythm: Technical Quality: Medications Complications Proc. Components FINDINGS LEFT VENTRICLE The left ventricular systolic function is severely reduced with an estimated ejection fraction in th e range of 25-30%. RIGHT VENTRICLE Normal right ventricular size and systolic function. LEFT ATRIUM The left atrial size is normal. RIGHT ATRIUM The right atrial size is normal. ATRIAL SEPTUM Normal atrial septal thickness without atrial level shunting by limited color doppler interrogation. AORTA The aortic root and proximal ascending aorta are normal in size on limited imaging. MITRAL VALVE Moderate mitral annular calcification. Moderate mitral valve regurgitation. AORTIC VALVE Trileaflet aortic valve. Severe aortic valve stenosis. Mild aortic insufficiency. Status post perioperative trans-catheter to valve replacement. No residual stenosis. No perivalvul ar leak. TRICUSPID VALVE Structurally normal tricuspid valve. No tricuspid valve stenosis or regurgitation. VESSELS The inferior vena cava is normal in size. PULMONARY VALVE The pulmonary valve is not well visualized. PERICADIUM No pericardial effusion. Marshall Polanco MD, FACC (Electronically Signed) Final Date:12 October 2018 08:51
[2018-10-12] MEDS ORDERED: Furosemide 20 MG Tablet PO SCH (09:00)
[2018-10-12] MEDS ORDERED: Ferrous Sulfate 325 MG Tablet PO SCH (09:00)
[2018-10-12] MEDS ORDERED: Hydroxyurea 500 MG Capsule PO SCH (09:00)
--- NOTE | 2018-10-12 11:09 | ECHRPT ---
Indication: post tavr CONCLUSIONS Normal left ventricular size. Mild concentric left ventricular hypertrophy. The left ventricular systolic function is mildly reduced with an estimated ejection fraction in the range of 45- 50%. The left atrial size is mildly dilated. Status post transcatheter aortic valve replacement Mild perivalvular leak No aortic valve stenosisThe estimated pulmonary arterial pressure is 52 mmHg. There is mild to moderate tricuspid valve regurgitation. BP: / HR: Rhythm: MEASUREMENTS (Male / Female) Normal Values Technical Quality: 2D ECHO LV Diastolic Diameter PLAX 4.8 cm 4.2 - 5.9 / 3.9 - 5.3 cm LV Systolic Diameter PLAX 3.9 cm IVS Diastolic Thickness 1.3 cm 0.6 - 1.0 / 0.6 - 0.9 cm LVPW Diastolic Thickness 1.5 cm 0.6 - 1.0 / 0.6 - 0.9 cm LV Relative Wall Thickness 0.6 RV Internal Dim ED PLAX 3.1 cm LVOT Diameter 1.5 cm Aortic Root Diameter 2.2 cm LA Systolic Diameter LX 3.9 cm 3.0 - 4.0 / 2.7 - 3.8 cm LV Ejection Fraction MOD BP 47.4 % >= 55 % LV Ejection Fraction MOD 4C 51.0 % LV Ejection Fraction 4C AL 49.9 % LV Ejection Fraction MOD 2C 50.0 % LV Ejection Fraction 2C AL 49.2 % M-MODE Aortic Root Diameter MM 2.6 cm LA Systolic Diameter MM 4.1 cm LA Ao Ratio MM 1.6 AV Cusp Separation MM 1.3 cm DOPPLER AV Peak Velocity 193.5 cm/s AV Peak Gradient 15.0 mmHg AV Mean Gradient 7.5 mmHg AV Velocity Time Integral 40.1 cm AI Peak Velocity 246.7 cm/s AI Peak Gradient 24.3 mmHg AI Pressure Half Time 505.0 ms LVOT Peak Velocity 114.0 cm/s LVOT Peak Gradient 5.2 mmHg LVOT Velocity Time Integral 21.5 cm AV Area Cont Eq vti 0.9 cm AV Area Cont Eq pk 1.0 cm TR Peak Velocity 323.0 cm/s TR Peak Gradient 41.7 mmHg Right Atrial Pressure 10.0 mmHg Pulmonary Artery Systolic Pressu 51.7 mmHg Right Ventricular Systolic Press 51.7 mmHg FINDINGS LEFT VENTRICLE Normal left ventricular size. Mild concentric left ventricular hypertrophy. The left ventricular systolic function is mildly reduced with an estimated ejection fraction in the range of 45- 50%. RIGHT VENTRICLE Normal right ventricular size and systolic function. LEFT ATRIUM The left atrial size is mildly dilated. RIGHT ATRIUM The right atrial size is normal. ATRIAL SEPTUM Normal atrial septal thickness without atrial level shunting by limited color doppler interrogation. AORTA The aortic root and proximal ascending aorta are normal in size on limited imaging. MITRAL VALVE Structurally normal mitral valve. No mitral valve stenosis or regurgitation. AORTIC VALVE Status post transcatheter aortic valve replacement Mild perivalvular leak No aortic valve stenosis TRICUSPID VALVE The estimated pulmonary arterial pressure is 52 mmHg. There is mild to moderate tricuspid valve regurgitation. PULMONARY VALVE No pulmonary valve regurgitation or stenosis. VESSELS The inferior vena cava is normal in size. PERICARDIUM No pericardial effusion. Marshall Polanco MD, FACC (Electronically Signed) Final Date:12 October 2018 11:08
--- NOTE | 2018-10-12 12:06 | P.PNCV ---
- Note Subjective/Hospital Course: 88-year-old male with history of atrial fibrillation, coronary disease, known carotid arterial occlusion, chronic renal insufficiency, hyperlipidemia, hypertension, myeloproliferative disease, peripheral vascular disease who presented to the outpatient setting with progressive shortness of breath. Transthoracic echocardiogram revealed moderate to severely reduced left ventricular systolic function with an ejection fraction of 35% and severe aortic valve stenosis. Patient was then referred for consideration of aortic valve replacement. Patient was evaluated by 2 cardiovascular surgeons and felt to be intermediate to high surgical risk for aortic valve replacement and was referred for consideration of transcatheter aortic valve replacement. now scheduled here electively for his procedure surgery: Date of procedure: 10/11/18 Anesthesia: GETA Surgeon: Melissa Milligan MD Operation and Findings: PREOPERATIVE DIAGNOSIS: 1. Severe Symptomatic Aortic stenosis. 2. CHF 3. Mild aortic Insufficiency 4. Severe Mitral Insufficiency 5. Atrial Fibrillation POSTOPERATIVE DIAGNOSIS: Same OPERATION PERFORMED: 1. Transcatheter Aortic Valve Replacement (TAVR) with a Medtronic 34 mm Evolut R Tissue Valve. 2. Aortogram. 3. Percutaneous left femoral Vein Access and Bilateral Common Femoral Artery Access 4. Perclose (x2) closure of right Common Femoral artery. 5. Vascade closure of left Common Femoral Artery and Vein. 6. Fluoroscopy echo: The left ventricular systolic function is mildly reduced with an estimated ejection fraction in the range of 45- 50%. The left atrial size is mildly dilated. Status post transcatheter aortic valve replacement Mild perivalvular leak 12/6 Up in the chair , doing well s/p echo as above Telemetry paced rhythm overnight. stable for dc today from CVT standpoint Objective: Vital Signs - 24 hr 10/11/18 13:00 10/11/18 13:06 10/11/18 13:17 Temperature 97.6 F Pulse Rate 79 87 Respiratory Rate 14 Blood Pressure 140/68 Pulse Oximetry 92 L 10/11/18 15:00 10/11/18 20:00 10/11/18 20:12 Temperature 97.8 F 98.2 F Pulse Rate 73 74 Respiratory Rate 16 20 Blood Pressure 164/60 H 137/54 L Pulse Oximetry 97 97 99 10/12/18 00:00 10/12/18 04:00 10/12/18 07:00 Temperature 97.6 F Pulse Rate 72 68 68 Respiratory Rate 16 16 18 Blood Pressure 118/54 L 107/68 110/54 L Pulse Oximetry 98 99 99 12/06/18 07:39 Temperature Pulse Rate Respiratory Rate Blood Pressure Pulse Oximetry 93 L GENERAL: SKIN: Warm and dry. dressing to both groin HEAD: Normocephalic. EYES: No scleral icterus. No injection or drainage. NECK: Supple, trachea midline. No JVD or lymphadenopathy. CARDIOVASCULAR: Regular rate and rhythm without murmurs, gallops, or rubs. RESPIRATORY: Breath sounds equal bilaterally. No accessory muscle use. GASTROINTESTINAL: Abdomen soft, non-tender, nondistended. MUSCULOSKELETAL: No cyanosis, or edema. BACK: Nontender without obvious deformity. No CVA tenderness. Labs: Laboratory Results - last 12 hr 10/12/18 10/12/18 05:40 05:40 WBC 7.3 RBC 2.13 L Hgb 9.5 L Hct 28.1 L MCV 131.5 H MCH 44.6 H MCHC 34.0 RDW 14.1 Plt Count 337 MPV 7.9 Sodium 141 Potassium 4.4 Chloride 106 Carbon Dioxide 30.4 Anion Gap 5 BUN 35 H Creatinine 1.66 H Estimated GFR 39 L Random Glucose 117 H Calcium 7.9 L Total Bilirubin 0.6 AST 21 ALT 10 L Alkaline Phosphatase 48 Total Protein 6.7 Albumin 3.1 L Result Diagrams: 10/12/18 05:40 10/12/18 05:40 - Plan (1) S/P TAVR (transcatheter aortic valve replacement) Plan: ASA, BB , Plavix, diuresis stable to dc from CVT standpoint defer further orders to Cardiology
[2018-10-12 15:02] VITALS: O2SAT 92
[2018-10-12 15:17] VITALS: BP 120/58; RESP 17; TEMP 97.9
[2018-10-12 15:39] VITALS: PULSE 72
--- NOTE | 2018-10-12 16:45 | ECG ---
Date Performed: 10/11/2018 Time Performed: 13:11:08 PTAGE: 88 years EKG: Atrial fibrillation with paced ventricular rhythm Frequent PVCs vs conduction of the underl donte atrial fibrillation or both Since the previous tracing, no significant change noted Abnormal ECG NO PREVIOUS TRACING DOCTOR: Nichol Holland Interpretating Date/Time 10/12/2018 16:44:25
== END 2018-10-12 16:07 | disposition home or self-care (01) ==
LOC: HSDI 07:22 → HDIC 07:24 → HCVI 13:30 → HCPC 10-12 09:01
PROVIDERS: ADMIT Internal Medicine; ATTEND Internal Medicine
PROC: TAVRHYB (ICD-10-PCS; 2018-10-11 10:16)